=== PATIENT | female | born 1935 | race Caucasian/White ===

== ENCOUNTER 2021-01-18 19:40 | Emergency (ER) | payer MEDICARE ==
[~2021-01-18] VITALS: Ht 154.9 cm; Wt 88.2 kg
[~2021-01-18 19:40] MED LIST: ALLO100T30 PO; AMOX1TAB64 PO; AMPI500V3 IV; ASPI325T20 PO; BISA10SU4 PR; DIGO125T85 PO; DOCU-131 PO; ENOX40SY4 SQ; ERTA1VIA IV; FERR325T17 PO; FURO40TA6 PO; HEPA500024 SC; HYDR-2214 PO; HYDR-3237 PO; LACT1TAB4 PO; LOSA50TA14 PO; METO25TA35 PO; METR500T PO; MULT-658 PO; NITR100C PO; NYST5000 PO; OMEP-110 PO; ONDA4TAB13 SL; OXYC5CAP2 PO; PARO10TA56 PO; POLY17PO5 PO; SIMV20TA19 PO; VALS40TA2 PO; VALS80TA3 PO; [UNRECOGNIZED DRUG - OTHER]
[2021-01-18] MEDS ORDERED: DIPH,PERTUSS(ACELL),TET VAC/PF 0.5 ML IM-VACC ONE ×2 (19:57→20:00)
[2021-01-18] MEDS ORDERED: LIDOCAINE-MPF 1%, 5ML ONE (19:57)
[2021-01-18] MEDS ORDERED: LIDOCAINE 1%, 10ML INFIL ONE (20:00)
[2021-01-18 20:41] LABS: BASOPHILS % (AUTO) 1 % (0-1); EOSINOPHILS % (AUTO) 4 % (1-7); LYMPHOCYTES % (AUTO) 10 % (22-44); MEAN CORPUSCULAR HEMOGLOBIN 28.8 pg (27.0-34.8); MEAN PLATELET VOLUME 7.7 fL (7.4-10.4); MONOCYTES % (AUTO) 8 % (2-9); NEUTROPHILS % (AUTO) 77 % (42-75); PLATELET COUNT 171 x10^3/uL (130-400); RED BLOOD COUNT 4.88 x10^6/uL (3.82-5.3); RED CELL DISTRIBUTION WIDTH 14.5 % (9.6-15.2)
[2021-01-18] MEDS ORDERED: ONDANSETRON 2MG/ML, 2ML IVPush ONE (21:00)
[2021-01-18] MEDS ORDERED: SODIUM CHLORIDE FLUSH 10ML SYR IVF ONE (21:00)
[2021-01-18 21:14] LABS: MD SCAN
[2021-01-18] MEDS ORDERED: ONDANSETRON 2MG/ML, 2ML ONE (21:26)
[2021-01-18] MEDS ORDERED: MORPHINE SULFATE 4 MG/ML, 1ML ONE ×2 (21:26→22:08)
[2021-01-18] MEDS: MORPHINE SULFATE 4 MG/ML, 1ML IVPush PRN ×2 (21:35→22:10)
--- NOTE | 2021-01-18 22:16 | NUR ---
PT MEDICATED FOR PAIN CONTROL. PT TRANSPORTED TO CT.
[2021-01-18 22:25] LABS: ALANINE AMINOTRANSFERASE 16 U/L (12-78); ALBUMIN 3.2 g/dL (3.4-5.0); ANION GAP 6 mmol/L (5-15); CALCIUM 8.8 mg/dL (8.5-10.1); CHLORIDE 110 mmol/L (98-107); CREATININE 1.62 mg/dL (0.55-1.02)
[2021-01-18 22:29] LABS: ALKALINE PHOSPHATASE 70 U/L (45-117); BILIRUBIN,TOTAL 0.4 mg/dL (0.2-1.0); TOTAL PROTEIN 6.8 g/dL (6.4-8.2); TROPONIN I < 0.015 ng/mL (0.000-0.045)
[2021-01-18] MEDS ORDERED: OMNIPAQUE 350 MG/ML, 100ML BOTTLE ONE (22:34)
--- NOTE | 2021-01-18 22:42 | NUR ---
Pt back from CT
--- NOTE | 2021-01-18 22:57 | NUR ---
RECEIVED REPORT FROM BEAU WEINBERG TO ASSUME CARE OF PT. AT THIS TIME. CT ABD PENDING.
[2021-01-18] MEDS ORDERED: SODIUM CHLORIDE 0.9% 1,000ML IVBOLUS ONE (23:00)
--- NOTE | 2021-01-18 23:29 | NUR ---
PT. ABLE TO DEMONSTRATE PROPER USE OF INSENTIVE SPIROMETER AFTER TEACHING PROVIDED.
--- NOTE | 2021-01-19 00:02 | NUR ---
TECH TO BS TO ASSIST PT. TO AMBULATE TO ENSURE PT. ABLE TO AMBULATE SAFELY.
--- NOTE | 2021-01-19 00:06 | NUR ---
UPDATED ON ROAD TEST RESULTS. PT. WAS ONLY ABLE TO AMBULATE ABOUT 10 STEPS AND BECAME VERY WINDED. PT. O2 SAT REMAINED 92% DURING AMBULATION. DR. LEE TO RE-EVAL PT. AND DISCUSS POC WITH PT. AND SON.
[2021-01-19 00:44] VITALS: BP 137/65
--- NOTE | 2021-01-19 00:44 | NUR ---
PT. DRESSED SELF. SON AT BS AND PT. VERBALIZE UNDERSTANDING OF ALL D/C INSTRUCTIONS. PT. TO D/C DESK VIA W/C. PT. LIVES WITH SON FOR ASSISTANCE.
== END 2021-01-19 00:44 | disposition home or self-care (01) ==
LOC: ED 20:39
DX: S22.32XA Fracture of one rib, left side, initial encounter for closed fracture (principal); S01.112A Laceration without foreign body of left eyelid and periocular area, initial encounter; R07.9 Chest pain, unspecified; R51.9 Headache, unspecified; I10 Essential (primary) hypertension; E78.5 Hyperlipidemia, unspecified; K21.9 Gastro-esophageal reflux disease without esophagitis; M10.9 Gout, unspecified; Z85.3 Personal history of malignant neoplasm of breast; Z85.528 Personal history of other malignant neoplasm of kidney; W01.0XXA Fall on same level from slipping, tripping and stumbling without subsequent striking against object, initial encounter; Y93.89 Activity, other specified; Y92.009 Unspecified place in unspecified non-institutional (private) residence as the place of occurrence of the external cause; Y99.8 Other external cause status
CPT/HCPCS: 12052; 36415; 70450; 70486; 71045; 72125; 74177; 80053; 84484; 85025; 90471; 90715; 93005; 96361; 96374; 96375; 96376; 99285; J2270; J2405; J7030; Q9967